=== PATIENT | female | born 1990 | race African-American/Black ===

== ENCOUNTER 2016-08-16 16:56 | Inpatient (IN) ==
[2016-08-16] MEDS ORDERED: ONDANSETRON 4 MG/2 ML VIAL IV PRN ×2 (17:11→19:20)
[2016-08-16] MEDS ORDERED: LACTATED RINGERS 500 ML IV PRN (17:11)
[2016-08-16] MEDS ORDERED: FAMOTIDINE 20 MG/2 ML VIAL IV ONE (17:24)
[2016-08-16] MEDS ORDERED: LACTATED RINGERS 1,000 ML IV ONE (17:24)
[2016-08-16] MEDS ORDERED: CITRIC ACID/SODIUM CITRATE 30 ML UDCUP PO ONE (17:24)
[2016-08-16] MEDS ORDERED: OXYTOCIN/LR 20 UNIT/1,000 ML BAG IV ONE ×2 (17:25→19:20)
[2016-08-16] MEDS ORDERED: ceFAZolin 2,000 MG in PREMIX 1 EACH IV ONE (17:26)
--- NOTE | 2016-08-16 17:26 | OB/GYN History & Physical ---
History of Present Illness Chief complaint: Labor History of present illness: Ms. Hernández is a 25 year old female at 34 6/7 weeks per her report comes in with complaints of labor. Checked and only membranes felt bulging. Bedside scan reveals transverse lie with head in the maternal RUQ. Advised patient that she needs to have a primary section done. R/B/A to surgery reviewed with the patient. Verbalized understanding and agrees to the procedure. No PmHx. No Surg history. H/o delivering "2 months" early with her last baby. No issues with this Home Medications Medication Instructions Recorded Confirmed Type NIFEdipine CAP [Procardia] 1 capsule PO Q6HR 03/05/15 03/05/15 History Ibuprofen Tab [Motrin Tab] 800 mg PO Q6H PRN #30 tablet 03/07/15 Rx oxyCODONE/ACETAMINOPHEN 5-325 2 tablet PO Q6H PRN #30 tablet 03/07/15 Rx [Percocet 5-325] Allergies Allergy/AdvReac Type Severity Reaction Status Date / Time acetaminophen AdvReac Intermediate Nausea Verified 03/05/15 03:36 [From Lorcet (hydrocodone)] hydrocodone AdvReac Intermediate Nausea Verified 03/05/15 03:36 [From Lorcet (hydrocodone)] Medical,Surgical,& Family Hx - Medical History Psychological: No history of: Anxiety Disorders Neurology: No history of: Brain Aneurysm, Cerebral Hemorrhage, Cerebrovascular Accident , Cerebral Palsy, Dementia, Migraine, Multiple Sclerosis, Parkinson's Disease, Peripheral Neuropathy, Seizures, TIA, Vertigo, Neurologocal Cancer Endocrine: History of: Diabetes Mellitus (NIDDM) (GESTATIONAL DIABETIES WITH THIS PREG.) - Surgical History Cardiac Surgeries: Patient Denies: Cardiac Catheterization Thoracic Surgeries: Patient denies;: Lobectomy Neurologic Surgeries: Patient denies: Brain Aneurysm, Cerebral Hemorrhage, Neurologic Surgery HEENT Surgeries: Patient denies: Tonsilectomy & Adenoidectomy Reproductive Surgeries: Patient denies;: Gynecologic Surgery - Family History Family History: Reports;: Family Diabetes (GRANDPARENTS), Family Hypertension ( PT MON AND DAD) Denies;: Family Anesthesia Reaction, Family Cancer, Family Heart Disease, Family Psychiatric Problems, Family Stroke - Social History Smoking Status: 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 FHTs reassuring) Assessment and Plan (1) 34 weeks gestation of Status: Acute Current Visit: Yes (2) labor in third trimester Status: Acute Current Visit: Yes (3) Transverse lie of fetus Status: Acute Assessment and plan: Proceed with primary section Current Visit: Yes Quality Measures - VTE Contraindication to Pharmacological VTE Prophylaxis: Clinical assessment deems Pt at low risk, no prophalaxis needed
[2016-08-16] MEDS ORDERED: LACTATED RINGERS 1,000 ML IV SCH (17:30)
[2016-08-16] MEDS ORDERED: OXYTOCIN/LR 20 UNIT/1,000 ML BAG IV SCH (17:30)
[2016-08-16 17:36] LABS: Basophils % 0.3 % (0.0-0.8); Eosinophils % 0.5 % (0.00-10.9); Hemoglobin 11.7 GM/DL (12.0-16.0); Immature Granulocytes % 0.3 %; Immature Granulocytes Absolute 0.02 #; Lymphocytes # 1.8 10*3/uL (1.4-4.0); Lymphocytes % 28.5 % (21.3-54.2); Mean Corpuscular HGB Conc 34.4 GM/DL (32-36); Mean Corpuscular Hemoglobin 28 PG (27-34); Mean Platelet Volume 12.6 FL (9.6-12.0); Monocytes # 0.4 10*3/uL (0.11-0.8); Monocytes % 6.5 % (1.7-12.7); Neutrophils # 3.9 10*3/uL (1.4-7.4); Neutrophils % 63.9 % (38.7-73.9); Platelet Count 197 T/CUMM (130-400); Red Blood Count 4.25 MC/CUMM (3.8-5.5); Red Cell Distribution Width 13.3 % (9.3-17.3); White Blood Count 6.2 T/CUMM (4-12)
[2016-08-16 17:39] LABS: Amorphous Crystals,Urine Occasional /HPF (Few); Apearance,Urine Slightly Hazy (Clear); Bilirubin,Urine Negative (Negative); Blood, Urine Negative (Negative); Glucose,Urine (UA) Negative (Negative); Ketones,Urine Negative (Negative); Mucus,Urine Occasional /LPF (Occasional); Nitrite,Urine Negative (Negative); Protein,Urine 30 MG/DL; RBC,Urine 1 /HPF (0-4); Squamous Epithelial Cell,Urine Occasional /HPF (0-10); Urine Color Yellow (Yellow); Urine Specific Gravity 1.017 (1.001-1.035); Urine Urobilinogen < 2.0 EU/DL (0.2-1.0); WBC,Urine 2 /HPF (0-6)
[2016-08-16] MEDS ORDERED: PHENYLEPHRINE 1 MG/10 ML SYRINGE IV ONE (17:45)
[2016-08-16] MEDS ORDERED: ONDANSETRON 4 MG/2 ML VIAL ONE (17:45)
--- NOTE | 2016-08-16 17:46 | Ultrasound Report ---
History: labor. Bulging membranes Date: 08/16/2016 Study: Obstetrical ultrasound limited Comparison exam: No previous this Real-time ultrasound images are captured and archived. The cervical canal is dilated at 3.4 cm. The cervix measures roughly 2.5 cm length. Bulging membranes prolapse through the dilated internal cervical canal. There is a single intrauterine fetus in transverse lie with the head to the maternal right, with heart rate of 122 bpm. The placenta is anterior. SUKI is not measured. Impression: Single intrauterine fetus in transverse lie with cardiac activity. There is a dilated cervical canal at 3.4 cm with prolapse of membranes into the vaginal vault PROCEDURE INTERPRETED AT [facility] DEPARTMENT OF RADIOLOGY Final Report Signed by: Dr. Miriam Carpenter
[2016-08-16 18:38] LABS: Barbiturates Screen,Urine Negative (Negative); Benzodiazepines Screen,Urine Negative (Negative); Cannabinoid Screen,Urine Negative (Negative); Opiate Screen,Urine Negative (Negative); Phencyclidine Screen,Urine Negative (Negative)
[2016-08-16 19:12] LABS: Cord Arterial Blood HCO3 18.1 MMOL/L
[2016-08-16] MEDS ORDERED: SIMETHICONE CHEW 80 MG TABLET PO PRN (19:20)
[2016-08-16] MEDS ORDERED: RHO(D) IMMUNE GLOBULIN 300 MCG SYRINGE IM ONE (19:20)
[2016-08-16] MEDS ORDERED: MORPHINE 10 MG/10 ML VIAL ONE (19:26)
[2016-08-16] MEDS ORDERED: fentaNYL 100 MCG/2 ML VIAL ONE (19:26)
[2016-08-16] MEDS ORDERED: ePHEDrine 50 MG/ML AMP ONE (19:28)
--- NOTE | 2016-08-16 19:33 | Operative Note ---
Date of procedure: 08/16/16 Pre-op diagnosis: 1. 34 6/7 wks 2. PTL 3. Malpresentation Post-op diagnosis: same Procedure: PRIMARY C SECTION Pt was taken to the OR and spinal anesthesia was placed. Prepped and draped in standard fashion with ugarte catheter in her bladder. Incision made 2 FBs above symphysis pubis. Carried down to the underlying fascia. Fascia scored in the midline and incision extended to each side with Solorio scissors. Sharath clamps placed superiorly and the rectus was dissected away. Similar procedure inferiorly. Midline entered sharply with Metzenbaum scissors. Incision extended bluntly. Andrew retractor placed. Bladder flap created sharply. Uterus incised with the knife and the incision extended with the bandage scissors. Foot of grabbed. Very difficult to get a hand inside of the uterus to grab other foot, uterus felt clamped down superiorly. Incsion extended on each side aiming upward. Both feet grasped, body delivered. Rotated to deliver each shoulder. Head then spontaneously delivered. Cord milked x 4 then cut and handed off to the awaiting NICU team. Placenta delivered easily. Uterus cleared of clots and debris. Uterus closed in 2 layers with 0 vicryl suture. A third was used to stop bleeding along the incision. Pelvis copiously irrigated with warm saline. Surgicell placed over the incision. Normal uterus, tubes and ovaries. Male in transverse position. Weight 6 lbs 5 ozs. APGARS 4/8. Fascia closed with two 1 vicryl sutures from either side to midline. Skin closed with veronique. Sponge, lap and needle counts correct x 2 and patient taken to recovery in stable condition. Anesthesia: regional Surgeon / Physician: Nancy Jones Faucets Assembler: Paola Pandey Estimated blood loss: other (1000 cc) Specimens: none sent Condition: stable Disposition: PACU Results - Labs CBC & BMP: 08/16/16 17:25 Discharge Plan - Discharge Medications No Action NIFEdipine CAP [Procardia] 1 capsule PO Q6HR Ibuprofen Tab [Motrin Tab] 800 mg PO Q6H PRN #30 tablet PRN Reason: Pain Moderate (4-7) oxyCODONE/ACETAMINOPHEN 5-325 [Percocet 5-325] 2 tablet PO Q6H PRN #30 tablet PRN Reason: Pain Severe (8-10) - Follow Up or Referral - Forms/Instructions
--- NOTE | 2016-08-16 19:37 | Anesthesia Post-Op ---
Anesthesia Post OP - Post Ansesthetic Evaluation Patient seen in post op: Yes Resp: within normal limits CV: within normal limits Mental: within normal limits Temp: within normal limits [id number]: within normal limits Nausea and Vomiting: within normal limits Pain: within normal limits
[2016-08-16] MEDS: LACTATED RINGERS 1,000 ML IV SCH (21:58)
[2016-08-17] MEDS: IBUPROFEN 800 MG TABLET PO SCH ×4 (04:32→18:00)
[2016-08-17] MEDS: DOCUSATE SODIUM 100 MG CAPSULE PO SCH ×3 (04:33→21:40)
[2016-08-17] MEDS: LACTATED RINGERS 1,000 ML IV SCH (05:32)
[2016-08-17 06:43] LABS: Basophils % 0.1 % (0.0-0.8); Hematocrit 20.3 VOL% (35.7-47.0); Immature Granulocytes % 0.7 %; Immature Granulocytes Absolute 0.09 #; Lymphocytes # 1.9 10*3/uL (1.4-4.0); Lymphocytes % 14.7 % (21.3-54.2); Mean Corpuscular HGB Conc 33.5 GM/DL (32-36); Mean Corpuscular Hemoglobin 27 PG (27-34); Mean Corpuscular Volume 80.2 FL (87-102); Mean Platelet Volume 12.3 FL (9.6-12.0); Monocytes % 7.6 % (1.7-12.7); Neutrophils % 76.9 % (38.7-73.9); Platelet Count 159 T/CUMM (130-400); Red Blood Count 2.53 MC/CUMM (3.8-5.5); Red Cell Distribution Width 13.3 % (9.3-17.3)
[2016-08-17 06:44] LABS: Hemoglobin 6.8 GM/DL (12.0-16.0)
[2016-08-17] MEDS: METOCLOPRAMIDE 10 MG/2 ML VIAL IV SCH ×2 (07:37→15:02)
[2016-08-17 07:46] LABS: Band Neutrophils 2 % (0-10); Hypochromasia 1+; Lymphocytes 11 % (20-55); Platelet Estimate Normal; Segmented Neutrophils 84 % (50-85); Total Cells Counted 100
[2016-08-17] MEDS ORDERED: SODIUM CHLORIDE 0.9% 250 ML IV PRN (08:08)
[2016-08-17] MEDS: MULTIVITAMIN (PRENATAL) TABLET PO SCH (09:16)
--- NOTE | 2016-08-17 10:11 | OB/GYN Progress Note ---
Assessment and Plan (1) 34 weeks gestation of Status: Acute Current Visit: Yes (2) labor in third trimester Status: Acute Current Visit: Yes (3) Transverse lie of fetus Status: Acute Assessment and plan: Proceed with primary section Current Visit: Yes (4) Status post primary low transverse section Status: Acute Assessment and plan: POD#1 s/p primary section at 34 6/7 weeks after presenting completely dilated with transverse lie Anemia, transfuse 2 units Continue care Current Visit: Yes (5) Anemia Status: Acute Current Visit: Yes DAY CARE PROVIDER - PN: Subj Interval history: Pt feels ok this morning. No complaints. Explained that her blood count is low and that she would benefit from transfusion. Pt verbalized understanding and agrees. Exam DAY CARE PROVIDER - Constitutional Vitals: Vital Signs Temp Pulse Resp BP Pulse Ox 08/17/16 00:15 97.1 F L 92 H 18 98/53 99 08/16/16 23:15 97.1 F L 88 20 100/64 99 08/16/16 22:15 98.2 F 89 18 110/72 99 08/16/16 22:00 18 08/16/16 21:45 80 18 106/54 99 08/16/16 21:15 97.2 F L 99 H 20 107/65 99 08/16/16 17:26 96.6 F L 106 H 18 122/56 99 General appearance: no acute distress - Head Head exam: Present: normal inspection, normocephalic - Eye Eye exam: Present: EOMI Pupils: Present: VALENTINA - GI/Abdominal GI/Abdominal exam: Present: other (Incision intact) Results - Labs CBC & BMP: 08/17/16 06:28
[2016-08-17] MEDS: MAGNESIUM HYDROXIDE SUSP 30 ML UDCUP PO PRN (17:20)
[2016-08-18] MEDS: METOCLOPRAMIDE 10 MG/2 ML VIAL IV SCH ×3 (00:16→15:41)
[2016-08-18] MEDS: IBUPROFEN 800 MG TABLET PO SCH ×3 (02:48→18:30)
[2016-08-18 04:22] LABS: Hematocrit 23.3 VOL% (35.7-47.0)
[2016-08-18] MEDS ORDERED: MAGNESIUM CITRATE 300 ML BOTTLE PO ONE (07:18)
[2016-08-18] MEDS: FERROUS SULFATE 325 MG TABLET PO SCH ×2 (08:17→20:29)
[2016-08-18] MEDS: MULTIVITAMIN (PRENATAL) TABLET PO SCH (08:18)
[2016-08-18] MEDS: MAGNESIUM HYDROXIDE SUSP 30 ML UDCUP PO PRN (08:18)
[2016-08-18] MEDS: DOCUSATE SODIUM 100 MG CAPSULE PO SCH ×2 (08:18→20:29)
--- NOTE | 2016-08-18 10:30 | Progress Note ---
Family Medicine PN Sub Interval history: Status post section secondary to breech presentation. Patient inverted T's incision which subsequently required a postoperative blood transfusion. Patient stable at this particular time she is doing well slightly gassy, no bowel movements at this moment. We will continue to observe and the iron therapy IV fluids increase ambulation and determine whether or not this patient needs any more supplemental transfusion. Exam (Progress Note) - Constitutional Vitals: Period Temp Pulse Resp BP Sys/Randhawa Pulse Ox Last 24 Hr 96.3 F-98.8 F 85-102 18-20 91-111/48-71 98-100 Results - Labs CBC & BMP: 08/18/16 04:08 Quality Measures - VTE Contraindication to Pharmacological VTE Prophylaxis: Clinical assessment deems Pt at low risk, no prophalaxis needed
[2016-08-19] MEDS: METOCLOPRAMIDE 10 MG TABLET PO SCH ×2 (02:50→08:53)
[2016-08-19] MEDS: METOCLOPRAMIDE 10 MG/2 ML VIAL IV SCH ×2 (02:51→08:27)
[2016-08-19] MEDS: IBUPROFEN 800 MG TABLET PO SCH (04:44)
[2016-08-19 08:11] VITALS: BP 109/58
[2016-08-19] MEDS: FERROUS SULFATE 325 MG TABLET PO SCH (08:53)
[2016-08-19] MEDS: MULTIVITAMIN (PRENATAL) TABLET PO SCH (08:53)
[2016-08-19] MEDS: DOCUSATE SODIUM 100 MG CAPSULE PO SCH (08:53)
--- NOTE | 2016-08-19 11:50 | Discharge Summary ---
Hospital Course - Hospital Course Hospital Course: Status post section Postoperative transfusion secondary to blood loss during the section. Positive bowel movements, voiding well, pain is appropriate. Extremities well with no limits and neurologic grossly intact Assessment plan Continue present therapy possible discharge in the 8 today Specialty Discharge - Follow Up or Referrals Follow up with: Gorge Villafana MD [Primary Care Provider] - 08/26/16 10:00 am Discharge Plan - Discharge Data Condition at Discharge: Stable Discharge Diet: advance to your usual diet Activity: resume usual activities as tolerated Hygiene: no restrictions Contact your physician if you experience:: fever over 101, Shortness of breath, Bleeding - Discharge Medications New Ferrous Sulfate Tab [Feosol Original Tab] 325 mg PO BID #60 tablet HYDROcodone/ACETAMIN 5-325 [[place] 5-325] 2 tablet PO Q6H PRN #45 tablet PRN Reason: Pain Severe (8-10) Ibuprofen Tab [Motrin Tab] 800 mg PO Q8H #30 tablet - Follow Up or Referral Follow Up: Gorge Villafana MD [Primary Care Provider] - 08/26/16 10:00 am - Forms/Instructions Instructions: Section (DC), Depression (GEN), Bleeding (DC) Exam - Constitutional Vitals: Period Temp Pulse Resp BP Sys/Randhawa Pulse Ox Last 24 Hr 96.8 F-98.7 F 74-92 18-20 100-117/54-66 96-99 DS: Provider Date of admission: 08/16/16 17:50 Primary care physician: Gorge Villafana MD Attending physician on admission: Gorge Villafana MD Consults: 08/16/16 19:21 Consult to Bracelet And Brooch Maker [CONS] Routine Consult Bracelet And Brooch Maker: Breast Feeding Discharging clinician: Gorge Villafana MD
== END 2016-08-19 13:35 | disposition home or self-care (01) | DRG 540 ==
LOC: N.LDOUT 16:56 → N.LD 16:59 → N.OB 21:15
PROVIDERS: ADMIT Obstetrics & Gynecology; ATTEND Obstetrics & Gynecology
PROC: LDCSECT (ICD-10-PCS; 2016-08-16 18:15)